=== PATIENT | male | born 1960 | race Caucasian/White ===

== ENCOUNTER → 2023-09-07 12:48 | Outpatient (CLI) | payer MEDICARE, SELFPAY ==
--- NOTE | 2023-09-07 12:51 | DI.MRI.S_ITS ---
PROCEDURE: MR SHOULDER LT WO CON INDICATIONS: LEFT SHOULDER PAIN TECHNIQUE: Noncontrast oblique coronal T2 fast spin echo with fat saturation, oblique sagittal T1 spin echo and T2 fast spin echo with fat saturation, axial T1 spin echo and T2 fast spin echo with fat saturation through the shoulder. COMPARISON: None. FINDINGS: Image quality: Excellent. Rotator cuff: There is prior rotator cuff tendon repair. Full-thickness rupture involving distal supraspinatus and infraspinatus at their insertions on the humeral head is seen with up to 4.1 cm medial retraction of torn tendon fibers to the level of acromion. Low-grade intrasubstance partial-thickness tear involving distal subscapularis is seen. Sagittal images demonstrate mild to moderate supraspinatus muscle atrophy. Bones and bursae: Postsurgical changes are seen in superior and lateral humeral head. Superior migration of humeral head in relation to glenoid is seen. Expected postsurgical widening of acromioclavicular joint is noted. There is moderate amount of subacromial subdeltoid bursal fluid, no gross loose bodies. No acute fracture or dislocation. Capsule and soft tissues: There is signal abnormality and contour irregularity involving inferior labrum at 5 to 7 o'clock position. The long head of the biceps tendon is markedly attenuated with surrounding soft tissue edema within the bicipital groove and intraarticularly. The rotator interval appears normal, without fibrosis. The coracohumeral ligament is normal in thickness. IMPRESSION: 1. Prior rotator cuff tendon repair with postsurgical changes. No gross marrow edema. No acute fracture or dislocation. Expected postsurgical widening of acromioclavicular joint. Moderate joint effusion and subacromial subdeltoid bursal fluid. No gross loose bodies. 2. Full-thickness rupture of distal supraspinatus and infraspinatus at their insertions on humeral head with up to 4.1 cm medial retraction of torn tendon fibers to the level of acromion. Low-grade intrasubstance partial-thickness tear involving distal subscapularis. Mild to moderate supraspinatus muscle atrophy. 3. Finding is concerning for inferior labral tear at 5 to 7 o'clock position. 4. Moderate grade partial-thickness tear involving proximal long head of biceps tendon. Dictated by: Maxwell Camacho M.D. on 09/07/2023 at 16:02 Approved by: Maxwell Camacho M.D. on 09/07/2023 at 16:09
== END ==
PROVIDERS: Referring Provider Orthopaedic Surgery; Visit Provider Orthopaedic Surgery
DX: M75.112 Incomplete rotator cuff tear or rupture of left shoulder, not specified as traumatic (principal); S46.112A Strain of muscle, fascia and tendon of long head of biceps, left arm, initial encounter; M25.412 Effusion, left shoulder
CPT/HCPCS: 73221

== ENCOUNTER → 2024-05-15 11:43 | Outpatient (CLI) | payer MEDICARE, SELFPAY ==
--- NOTE | 2024-05-15 11:45 | DI.MRI.S_ITS ---
PROCEDURE: MR ANKLE LT WO CON INDICATIONS: CHRONIC RUPTURE OF ACHILLES TENDON TECHNIQUE: Noncontrast sagittal T1 spin echo and T2 fast spin echo with fat saturation, axial proton density fast spin echo and T2 fast spin echo with fat saturation, coronal T1 spin echo and T2 fast spin echo with fat saturation through the ankle/hindfoot. COMPARISON: [facility] Outside Film, MR, MR ANKLE LEFT WITHOUT CONTRAST, 06/05/2019, 7:18. FINDINGS: Image quality: Unremarkable Tendons: Mild tenosynovitis of the posterior tibialis. The flexor digitorum longus and the flexor hallucis longus are unremarkable. The extensor tendons are unremarkable. Mild tenosynovitis of the peroneal tendon with longitudinal split tear of the peroneal brevis and mild tendinosis of the peroneal longus. There is a cluster of ganglion cyst at the base of the 5th metatarsal, along the peroneal brevis, measuring 2.4 by 0.9 cm overall. Severe tendinosis of the Achilles tendon with low grade interstitial tear. Small heterotopic ossification within the distal Achilles tendon, new from prior exam, representing prior injury. Ligaments: The anterior and the posterior tibiofibular ligament is intact. The anterior and the posterior talofibular ligament are intact. The calcaneofibular ligament is intact. The deep portion of the deltoid ligament is unremarkable. Sinus tarsi: No fibrosis. Plantar fascia: Unremarkable Muscle: Normal in signal Bones: Mild subchondral marrow edema at the tip of the fibula, favoring reactive. Additional mild subchondral cystic changes and marrow edema of the distal fibula at the insertion of the anterior tibiofibular ligament, reactive as well. Plantar calcaneal enthesophyte, without marrow edema. No acute fracture. Small amount of fluid within the posterior subtalar recess. IMPRESSION: 1. Mild tenosynovitis of the posterior tibialis. 2. Mild tenosynovitis of the peroneal tendons with longus split tear of the peroneal brevis and mild tendinosis of the peroneal longus. A cluster of ganglion cyst tracking along the peroneal brevis at the base of the 5th metatarsal. 3. Severe tendinosis of the Achilles tendon with low grade interstitial tear. The degree of interstitial tear is grossly unchanged from prior exam. Interval development of heterotopic ossification in the Achilles tendon. 4. Multifocal mild reactive marrow edema of the distal fibula. Dictated by: Judit Marsh M.D. on 05/15/2024 at 17:51 Approved by: Judit Marsh M.D. on 05/15/2024 at 18:01
== END ==
PROVIDERS: PCP Family Medicine; Referring Provider Orthopaedic Surgery Foot and Ankle Surgery; Visit Provider Orthopaedic Surgery Foot and Ankle Surgery
DX: S86.012A Strain of left Achilles tendon, initial encounter (principal); M65.872 Other synovitis and tenosynovitis, left ankle and foot; M67.472 Ganglion, left ankle and foot; X58.XXXA Exposure to other specified factors, initial encounter
CPT/HCPCS: 73721